=== PATIENT | female | born 1975 | race Two or more races ===

== ENCOUNTER 2019-02-07 09:52 | Day surgery (SDC) | payer OTHER ==
[~2019-02-07 09:52] MED LIST: LISINOPRIL5 MG PO; TOPROL XL25 MG PO
== END 2019-02-07 19:15 | disposition home or self-care (01) ==
LOC: CIR.AMB 09:52
DX: D26.1 Other benign neoplasm of corpus uteri (principal)

== ENCOUNTER 2024-10-22 14:22 | Emergency (ER) | payer OTHER ==
[~2024-10-22] VITALS: Ht 157.5 cm; Wt 89.8 kg
[~2024-10-22 14:22] MED LIST changes: +WIXELA 250-501 EACH IH
[2024-10-22] MEDS ORDERED: LEVOFLOXACIN750 MG PO (15:56)
[2024-10-22 17:58] LABS: BASO % 0.5 % (0.1-1.2); EOS # 0.12 (0.04-0.54); EOS % 1.5 % (0.7-7.0); HEMATOCRIT 38.5 % (34.1-44.9); HEMOGLOBIN 12.9 g/dL (11.2-15.7); LYMPH # 2.06 (1.18-3.74); LYMPH % 25.5 % (19.3-53.1); MEAN CORPUSCULAR HEMOGLOBIN 28.2 pg (25.6-32.2); MONO # 0.62 (0.24-0.82); MONO % 7.7 % (4.7-12.5); NEUT # 5.22 (1.56-6.13); NEUT % 64.4 % (34.0-71.1); PLATELET COUNT 291 K/uL (163-369); RED BLOOD COUNT 4.57 M/uL (3.93-5.22); RED CELL DISTRIBUTION WIDTH 18.9 % (11.6-14.4)
[2024-10-22 18:43] LABS: ALBUMIN 3.8 gm/dL (3.4-5.0); BILIRUBIN TOTAL 0.58 mg/dL (0.3-1.2); CALCIUM 8.7 mg/dL (8.5-10.1); CREATININE SERUM 0.79 mg/dL (0.55-1.02); GFR 78.01; GLOBULINA 3.3 G/DL (2.4-3.5); POTASSIUM 3.46 mEq/L (3.5-5.1); TOTAL PROTEIN 7.1 gm/dL (6.4-8.2)
[2024-10-22] MEDS ORDERED: 8 HOUR650 MG PO (21:12)
[2024-10-22] MEDS ORDERED: BACLOFEN10 MG PO (21:12)
[2024-10-22] MEDS ORDERED: POTASSIUM BICARBONATE/CIT AC 25 MEQ TABLET.EFF PO ONE (21:15)
[2024-10-22] MEDS ORDERED: DEXAMETHASONE SODIUM PHOSPHATE 4 MG/ML VIAL IM ONE (21:15)
[2024-10-22] MEDS ORDERED: TRAMADOL HCL 50 MG TABLET PO ONE (21:15)
== END 2024-10-22 21:18 | disposition home or self-care (01) ==
LOC: ER 14:22
PROVIDERS: Preventive Medicine Public Health & General Preventive Medicine
DX: M94.0 Chondrocostal junction syndrome [Tietze] (principal); I10 Essential (primary) hypertension; G47.30 Sleep apnea, unspecified; Z87.09 Personal history of other diseases of the respiratory system